=== PATIENT | male | born 1965 | race Caucasian/White ===

== ENCOUNTER 2021-11-25 06:43 | Emergency (ER) | payer BC ==
[2021-11-25] MEDS ORDERED: Ondansetron 4 MG/2 ML SDV IVPUSH ONE (07:46)
[2021-11-25] MEDS ORDERED: Ketorolac 30 MG/ML SDV IVPUSH ONE (07:46)
[2021-11-25] MEDS ORDERED: Sodium Chloride 0.9% 1,000 ML IV ONE (07:46)
== END 2021-11-25 10:35 | disposition home or self-care (01) ==
LOC: MW.ED 06:43
DX: N20.0 Calculus of kidney (principal); Z79.899 Other long term (current) drug therapy
CPT/HCPCS: 74176; 81001; 96361; 96374; 96375; 99284; J1885; J2405; J7030

== ENCOUNTER 2022-02-04 09:03 | Day surgery (SDC) | payer BC ==
[~2022-02-04 09:03] MED LIST: Lactated Ringers 1,000 ML IV SCH; Propofol 200 MG/20 ML SDV ONE; fentaNYL 100 MCG/2 ML SDV ONE
[2022-02-04] MEDS ORDERED: fentaNYL 100 MCG/2 ML SDV ONE (11:00)
[2022-02-04] MEDS ORDERED: Propofol 200 MG/20 ML SDV ONE (11:18)
[2022-02-04] MEDS ORDERED: Lactated Ringers 1,000 ML IV SCH (11:45)
== END 2022-02-04 12:12 | disposition home or self-care (01) ==
LOC: MW.SDS 09:03
PROVIDERS: ATTEND Surgery
DX: D12.8 Benign neoplasm of rectum (principal); K57.31 Diverticulosis of large intestine without perforation or abscess with bleeding; I48.91 Unspecified atrial fibrillation; Z98.890 Other specified postprocedural states; Z87.891 Personal history of nicotine dependence; Z80.0 Family history of malignant neoplasm of digestive organs; Z79.899 Other long term (current) drug therapy
CPT/HCPCS: 00811; J0131; J2704; J3010; J7120

== ENCOUNTER 2022-05-01 00:47 | Emergency (ER) | payer BC ==
[2022-05-01] MEDS ORDERED: Albuterol/Ipratropium 3.0-0.5 MG/3 ML Neb Soln NEB ONE (01:21)
[2022-05-01] MEDS ORDERED: Lidocaine 2% Viscous Solution 15 ML UD PO ONE (01:37)
[2022-05-01 02:03] LABS: CORONAVIRUS COVID-19 NAA NEGATIVE (NEGATIVE); INFLUENZA A NAA NEGATIVE (NEGATIVE); INFLUENZA B NAA NEGATIVE (NEGATIVE)
== END 2022-05-01 03:24 | disposition home or self-care (01) ==
LOC: MW.ED 00:47
DX: J40 Bronchitis, not specified as acute or chronic (principal); I48.91 Unspecified atrial fibrillation; I10 Essential (primary) hypertension; Z20.822 Contact with and (suspected) exposure to COVID-19; Z79.899 Other long term (current) drug therapy
CPT/HCPCS: 0240U; 71045; 87651; 99284; A9270; J7620-GY

== ENCOUNTER 2022-12-23 18:28 | Emergency (ER) | payer BC | END 2022-12-23 21:21 | disposition home or self-care (01) | LOC: MW.ED 18:28 | DX: J40 Bronchitis, not specified as acute or chronic (principal) | CPT/HCPCS: 71046; 71046-26; 99283 ==